=== PATIENT | male | born 1945 | race Caucasian/White ===

== ENCOUNTER 2023-08-10 15:05 | Outpatient (AMB) | payer MEDICARE, OTHER, SELFPAY ==
[2023-08-10 15:07] VITALS: BP 126/60; PULSE 74; O2SAT 98; BMI 34.3
--- NOTE | 2023-08-10 15:07 | HO.NEPHOV_ITS ---
HPI HPI Comments History of Present Illness Details 77-year-old man with a longstanding hist ory of hypertension who was recently found to have a serum creatinine of 2.1 and hence this referral. 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 PFSH Family History (Updated 08/10/23 @ 15:13 by Fadumo Dominguez) Mother Cancer Father Heart failure Social History (Updated 08/10/23 @ 15:13 by Fadumo Dominguez) Alcohol intake: current Comment: Seldom Patient Tobacco Use Status: Never used Tobacco Use of substances other than those prescribed or required for medical reasons: No Vital Signs 08/10/23 15:07 Height 5 ft 8.5 in Weight 229 lb BMI 34.3 BP 126/60 Blood Pressure Location Lt brachial Position Sitting Pulse 74 Pulse Source Pulse Oximeter Pulse Oximetry (%) 98 Oxygen Delivery Method Room Air Physical Exam Vital Signs: Last Vital Signs Pulse 74 08/10/23 15:07 BP 126/60 08/10/23 15:07 Pulse Ox 98 08/10/23 15:07 Oxygen Delivery Method Room Air 08/10/23 15:07 BMI result Body Mass Index 34.3 Const General: comfortable Nutritional Appearance: well nourished Orientation/consciousness: patient oriented x3 HEENT Head: No normal to inspection Mouth: moist mucous membranes Neck Neck: Yes supple and Yes no JVD Resp Auscultation: clear to auscultation bilaterally, no rales and rub present Cardio Jugular venous distension: no JVD Palpation: no palpable S3 and no palpable S4 Heart sounds: no rubs GI Palpation (GI): Soft to palpation and nontender Percussion: No Fluid wave present General: Yes no CVA tenderness Back/Spine/Pelvis Back: no CVA tenderness Skin General skin exam: no rashes or lesions noted Neuro General: patient oriented x3 Extrem General: Yes no pedal edema and No clubbing Assessment & Plan Assessment & Plan (1) CKD (chronic kidney disease): Code(s): N18.9 - Chronic kidney disease, unspecified (2) HTN (hypertension): Code(s): I10 - Essential (primary) hypertension Plan . 77-year-old man with a history of longstanding hypertension obesity with the elevated serum creatinine. Differential diagnosis include hypertensive nephrosclerosis. Other causes need to be ruled out. Workup as outlined below including urine for protein creatinine ratio and renal ultrasonogram. Encouraged him to lose some weight. Maintain blood pressure less than 130/80. Stay on low-sodium diet. Discussed weight loss. For now I have not made any changes in his medications. He will return to office once the baseline workup is completed and I will keep you updated. Orders: Orders UA and rflx microscopic Today N18.9 - Chronic kidney disease, unspecified Comprehensive Met. Panel Today N18.9 - Chronic kidney disease, unspecified Complete Blood Count Auto Diff Today N18.30 - Chronic kidney disease, stage 3 unspecified, N18.9 - Chronic kidney disease, unspecified Total Protein Urine Random Today N18.9 - Chronic kidney disease, unspecified Parathyroid Hormone Intact Today N18.9 - Chronic kidney disease, unspecified Creatinine Urine Today N05.9 - Unspecified nephritic syndrome with unspecified morphologic changes, N18.9 - Chronic kidney disease, unspecified US renal BI Today N18.9 - Chronic kidney disease, unspecified Coding Level of Care Code New Pt Level 5 (19850) Diagnoses CKD (chronic kidney disease) N18.9 HTN (hypertension) I10 Results Reviewed Results Reviewed: July 2023 Creatinine 2.1. Serum lytes normal. Nephrology Results: No Data to Display
== END 2023-08-10 15:36 | disposition home or self-care (01) ==
PROVIDERS: PCP Internal Medicine; Referring Provider Internal Medicine; Visit Provider Internal Medicine Hypertension Specialist
DX: I12.9 Hypertensive chronic kidney disease with stage 1 through stage 4 chronic kidney disease, or unspecified chronic kidney disease (principal); N18.9 Chronic kidney disease, unspecified
CPT/HCPCS: 99204

== ENCOUNTER → 2023-08-10 15:05 | Outpatient (BNVA) | payer MEDICARE, SELFPAY | PROVIDERS: PCP Internal Medicine; Referring Provider Internal Medicine; Visit Provider Internal Medicine Hypertension Specialist | DX: I12.9 Hypertensive chronic kidney disease with stage 1 through stage 4 chronic kidney disease, or unspecified chronic kidney disease (principal); N18.9 Chronic kidney disease, unspecified | CPT/HCPCS: 99202 ==

== ENCOUNTER 2023-09-21 13:32 | Outpatient (AMB) | payer MEDICARE, OTHER, SELFPAY ==
[2023-09-21 13:37] VITALS: BP 120/68; PULSE 75; O2SAT 98; BMI 33.9
--- NOTE | 2023-09-21 13:37 | HO.NEPHOV_ITS ---
HPI HPI Comments History of Present Illness Details 77-year-old man with a longstanding hist ory of hypertension who was recently found to have a serum creatinine of 2.1 and hence this referral. 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 09/21/23 Doing well Wakes up few times at night to urinate h/o Snoring PFSH Family History Mother Cancer Father Heart failure Social History Alcohol intake: current Comment: Seldom Patient Tobacco Use Status: Never used Tobacco Vital Signs 09/21/23 13:37 Height 5 ft 8.5 in Weight 226 lb BMI 33.9 BP 120/68 Blood Pressure Location Lt brachial Position Sitting Pulse 75 Pulse Source Pulse Oximeter Pulse Oximetry (%) 98 Oxygen Delivery Method Room Air Physical Exam Vital Signs: Last Vital Signs Pulse 75 09/21/23 13:37 BP 120/68 09/21/23 13:37 Pulse Ox 98 09/21/23 13:37 Oxygen Delivery Method Room Air 09/21/23 13:37 BMI result Body Mass Index 33.9 Const General: comfortable Nutritional Appearance: well nourished Orientation/consciousness: patient oriented x3 HEENT Head: No normal to inspection Mouth: moist mucous membranes Neck Neck: Yes supple and Yes no JVD Resp Auscultation: clear to auscultation bilaterally, no rales and rub present Cardio Jugular venous distension: no JVD Palpation: no palpable S3 and no palpable S4 Heart sounds: no rubs GI Palpation (GI): Soft to palpation and nontender Percussion: No Fluid wave present General: Yes no CVA tenderness Back/Spine/Pelvis Back: no CVA tenderness Skin General skin exam: no rashes or lesions noted Neuro General: patient oriented x3 Extrem General: Yes no pedal edema and No clubbing Assessment & Plan Assessment & Plan (1) CKD (chronic kidney disease): Code(s): N18.9 - Chronic kidney disease, unspecified (2) HTN (hypertension): Code(s): I10 - Essential (primary) hypertension Plan . 77-year-old man with a history of longstanding hypertension obesity with the elevated serum creatinine. Differential diagnosis include hypertensive nephrosclerosis. UA has no RBCS URien Pro: Cr is 304 with no protein by dipstick - ? paraproteins Ordered SPEP Track down renal ultrasonogram. Encouraged him to lose some weight. Maintain blood pressure less than 130/80. Increase PO fludi intake Stay on low-sodium diet. Probably has sleep apnea Will benefit from sleep evaluation Orders: Orders Protein Electrophoresis, Serum 2 Months N18.9 - Chronic kidney disease, unspecified Creatinine Urine 2 Months N05.9 - Unspecified nephritic syndrome with unspecified morphologic changes, N18.9 - Chronic kidney disease, unspecified Total Protein Urine Random 2 Months N18.9 - Chronic kidney disease, unspecified UA and rflx microscopic 2 Months N18.9 - Chronic kidney disease, unspecified Basic Metabolic Panel 2 Months N18.9 - Chronic kidney disease, unspecified Coding Level of Care Code Est Pt Level 4 (90467) Diagnoses CKD (chronic kidney disease) N18.9 HTN (hypertension) I10 Results Reviewed Results Reviewed: July 2023 Creatinine 2.1. Serum lytes normal. Repeat Cr on 09/05/23: 1.24 Urine Pro: cr 304 Nephrology Results: No Data to Display
== END 2023-09-21 14:13 | disposition home or self-care (01) ==
PROVIDERS: PCP Internal Medicine; Visit Provider Internal Medicine Hypertension Specialist
DX: I12.9 Hypertensive chronic kidney disease with stage 1 through stage 4 chronic kidney disease, or unspecified chronic kidney disease (principal); N18.9 Chronic kidney disease, unspecified
CPT/HCPCS: 99214

== ENCOUNTER → 2023-09-21 13:32 | Outpatient (BNVA) | payer MEDICARE, OTHER, SELFPAY | PROVIDERS: PCP Internal Medicine; Visit Provider Internal Medicine Hypertension Specialist | DX: I12.9 Hypertensive chronic kidney disease with stage 1 through stage 4 chronic kidney disease, or unspecified chronic kidney disease (principal); N18.9 Chronic kidney disease, unspecified | CPT/HCPCS: 99212 ==

== ENCOUNTER 2023-12-14 12:09 | Outpatient (REF) | payer MEDICARE, OTHER, SELFPAY ==
[2023-12-14 17:47] LABS: Appearance Urine Clear; Color Urine Yellow; Glucose Urine UA Negative (Negative); Leukocyte Esterase Urine Negative (Negative); Nitrite Urine Negative (Negative); Specific Gravity - Urine 1.015 (1.005-1.025); Urine Blood Negative (Negative); Urine Ketones Negative (Negative); Urine Protein Negative (Neg-Trace)
[2023-12-14 18:14] LABS: Creatinine Urine 85.89 mg/dL; Total Protein Urine Random < 7 mg/dL (<12)
[2023-12-14 18:17] LABS: Anion Gap 13 (12-20); Blood Urea Nitrogen 21 mg/dL (9-16); Calcium 9.1 mg/dL (8.4-10.2); Carbon Dioxide 28 mmol/L (22-29); Chloride 101 mmol/L (96-108); Estimated Glomerular Filt Rate 47; Glucose Random 81 mg/dL (60-115); Potassium 4.2 mmol/L (3.3-5.1); Sodium 138 mmol/L (135-145)
[2023-12-20 17:48] LABS: Prot Elec - Albumin 3.6 g/dL (3.8-4.8); Prot Elec - Alpha1 0.2 g/dL (0.2-0.3); Prot Elec - Alpha2 0.6 g/dL (0.5-0.9); Prot Elec - Beta 1 0.4 g/dL (0.4-0.6); Prot Elec - Beta 2 0.4 g/dL (0.2-0.5); Prot Elec - Gamma 0.7 g/dL (0.8-1.7); Prot Elec - Total Protein 5.9 g/dL (6.1-8.1)
== END 2023-12-14 12:10 | disposition home or self-care (01) ==
LOC: HO.HKASLDS 12:09
PROVIDERS: Visit Provider Internal Medicine Hypertension Specialist
DX: N18.9 Chronic kidney disease, unspecified (principal); N05.9 Unspecified nephritic syndrome with unspecified morphologic changes
CPT/HCPCS: 36415; 80048; 81003; 82570; 84156; 84165; 99212

== ENCOUNTER 2023-12-14 13:40 | Outpatient (AMB) | payer MEDICARE, OTHER, SELFPAY ==
[2023-12-14 13:39] VITALS: BP 134/64; PULSE 78; O2SAT 96; BMI 34.3
--- NOTE | 2023-12-14 13:39 | HO.NEPHOV ---
Vital Signs 12/14/23 13:39 Height 5 ft 8.5 in Weight 229 lb BMI 34.3 BP 134/64 Blood Pressure Location Lt brachial Position Sitting Pulse 78 Pulse Source Pulse Oximeter Pulse Oximetry (%) 96 Oxygen Delivery Method Room Air Intake Visit Reasons: CKD/ 3 MO FU/ Conf Motorsports Technician Required: No Accompanied by: Self / Same As Patient Allergies lisinopril Allergy (Mild, Verified 12/14/23 13:41) Itching statin Allergy (Mild, Uncoded 08/10/23 15:11) Unknown Medication List - Last Reconciled 12/14/23 by Kory Burrell MD coenzyme Q10 (Co Q-10) 300 mg PO DAILY losartan-hydrochlorothiazide 50-12.5 mg 1 tab PO DAILY magnesium 500 mg PO DAILY simvastatin 40 mg PO DAILY HPI Comments Details: 77-year-old man with a longstanding history of hypertension who was recently found to have a serum creatinine of 2.1 and hence this referral. 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 09/21/23;Doing well;Wakes up few times at night to urinate; h/o Snoring PFSH Family History Mother Cancer Father Heart failure Social History Alcohol intake: current Comment: Seldom Patient Tobacco Use Status: Never used Tobacco Physical Exam Vital Signs: Last Vital Signs Pulse 78 12/14/23 13:39 BP 134/64 12/14/23 13:39 Pulse Ox 96 12/14/23 13:39 Oxygen Delivery Method Room Air 12/14/23 13:39 BMI result Body Mass Index 34.3 Const General: comfortable; No acute distress Orientation/consciousness: patient oriented x3 Eyes General: appearance normal, both eyes and all related structures Visual Crouch: normal visual crouch by confrontation Neck Neck: Yes supple and Yes no JVD Resp Effort & Inspection: normal respiratory effort and respiratory effort not decreased Auscultation: rhonchi Cardio Palpation: no palpable S3 and no palpable S4 Heart sounds: no rubs GI Inspection: Yes normal to inspection Palpation (GI): Soft to palpation Percussion: Yes normal to percussion Auscultation: normal bowel sounds General: Yes no CVA tenderness Back/Spine/Pelvis Back: no CVA tenderness Skin General skin exam: no petechiae and no purpura Neuro General: patient oriented x3 and no focal motor deficits Extrem General: No clubbing and No edema Results Reviewed Nephrology Results: Sodium 138 mmol/L (135-145) 12/14/23 Potassium 4.2 mmol/L (3.3-5.1) 12/14/23 Chloride 101 mmol/L (96-108) 12/14/23 Carbon Dioxide 28 mmol/L (22-29) 12/14/23 BUN 21 mg/dL (9-16) H 12/14/23 Creatinine 1.44 mg/dL (0.5-1.4) H 12/14/23 Calcium 9.1 mg/dL (8.4-10.2) 12/14/23 Urine Protein Negative mg/dL (Neg-Trace) 12/14/23 Urine Creatinine 85.89 mg/dL 12/14/23 Assessment & Plan Assessment & Plan (1) CKD (chronic kidney disease): Code(s): N18.9 - Chronic kidney disease, unspecified Category: Medical (2) HTN (hypertension): Code(s): I10 - Essential (primary) hypertension Category: Medical Plan . 77-year-old man with a history of longstanding hypertension obesity with the elevated serum creatinine. Differential diagnosis include hypertensive nephrosclerosis. UA has no RBCS URien Pro: Cr is 304 with no protein by dipstick - ? paraproteins Ordered SPEP Track down renal ultrasonogram. Encouraged him to lose some weight. Maintain blood pressure less than 130/80. Increase PO fludi intake Stay on low-sodium diet. Probably has sleep apnea Will benefit from sleep evaluation Coding Level of Care Code Est Pt Level 4 (37469) Diagnoses CKD (chronic kidney disease) N18.9 HTN (hypertension) I10
== END 2023-12-14 13:59 | disposition home or self-care (01) ==
PROVIDERS: PCP Internal Medicine; Visit Provider Internal Medicine Hypertension Specialist
DX: I12.9 Hypertensive chronic kidney disease with stage 1 through stage 4 chronic kidney disease, or unspecified chronic kidney disease (principal); N18.9 Chronic kidney disease, unspecified
CPT/HCPCS: 99214

== ENCOUNTER 2024-04-18 14:43 | Outpatient (AMB) | payer MEDICARE, OTHER, SELFPAY ==
[2024-04-18 14:44] VITALS: BP 138/72; PULSE 75; O2SAT 97; BMI 34.5
--- NOTE | 2024-04-18 14:44 | HO.NEPHOV_ITS ---
Vital Signs 04/18/24 14:44 Height 5 ft 8.5 in Weight 230 lb BMI 34.5 BP 138/72 Blood Pressure Location Rt brachial Position Sitting Pulse 75 Pulse Source Pulse Oximeter Pulse Oximetry (%) 97 Oxygen Delivery Method Room Air Intake Visit Reasons: 4 mon follow up/ Conf Pin Game Machine Inspector Required: No Accompanied by: Self / Same As Patient Allergies lisinopril Allergy (Mild, Verified 04/18/24 14:46) Itching statin Allergy (Mild, Uncoded 08/10/23 15:11) Unknown Medication List - Last Reconciled 04/18/24 by Kory Burrell MD coenzyme Q10 (Co Q-10) 300 mg PO DAILY cyanocobalamin (vitamin B-12) 1,000 mcg PO DAILY losartan-hydrochlorothiazide 50-12.5 mg 1 tab PO DAILY magnesium 500 mg PO DAILY melatonin 10 mg PO BEDTIME PRN simvastatin 40 mg PO DAILY HPI Comments Details: 77-year-old man with a longstanding history of hypertension who was recently found to have a serum creatinine of 2.1 and hence this referral. 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 09/21/23;Doing well;Wakes up few times at night to urinate; h/o Snoring 04/18/24 No new issues PFSH Family History Mother Cancer Father Heart failure Social History Alcohol intake: current Comment: Seldom Patient Tobacco Use Status: Never used Tobacco Physical Exam Vital Signs: Last Vital Signs Pulse 75 04/18/24 14:44 BP 138/72 04/18/24 14:44 Pulse Ox 97 04/18/24 14:44 Oxygen Delivery Method Room Air 04/18/24 14:44 BMI result Body Mass Index 34.5 Const General: comfortable; No acute distress Orientation/consciousness: patient oriented x3 Eyes General: appearance normal, both eyes and all related structures Visual Crouch: normal visual crouch by confrontation Neck Neck: Yes supple and Yes no JVD Resp Effort & Inspection: normal respiratory effort and respiratory effort not decreased Auscultation: rhonchi Cardio Palpation: no palpable S3 and no palpable S4 Heart sounds: no rubs GI Inspection: Yes normal to inspection Palpation (GI): Soft to palpation Percussion: Yes normal to percussion Auscultation: normal bowel sounds General: Yes no CVA tenderness Back/Spine/Pelvis Back: no CVA tenderness Skin General skin exam: no petechiae and no purpura Neuro General: patient oriented x3 and no focal motor deficits Extrem General: No clubbing and No edema Results Reviewed Nephrology Results: Sodium 138 mmol/L (135-145) 12/14/23 Potassium 4.2 mmol/L (3.3-5.1) 12/14/23 Chloride 101 mmol/L (96-108) 12/14/23 Carbon Dioxide 28 mmol/L (22-29) 12/14/23 BUN 21 mg/dL (9-16) H 12/14/23 Creatinine 1.44 mg/dL (0.5-1.4) H 12/14/23 Calcium 9.1 mg/dL (8.4-10.2) 12/14/23 Urine Protein Negative mg/dL (Neg-Trace) 12/14/23 Urine Creatinine 85.89 mg/dL 12/14/23 Assessment & Plan Assessment & Plan (1) CKD (chronic kidney disease): Code(s): N18.9 - Chronic kidney disease, unspecified Category: Medical (2) HTN (hypertension): Code(s): I10 - Essential (primary) hypertension Category: Medical Plan . 77-year-old man with a history of longstanding hypertension obesity with the elevated serum creatinine. Differential diagnosis include hypertensive nephrosclerosis. UA has no RBCS URien Pro: Cr is 304 with no protein by dipstick - ? paraproteins Ordered SPEP, Renal cyst- hemorrahgic /simple. NO follow up recommended Encouraged him to lose some weight. Maintain blood pressure less than 130/80. Increase PO fluid intake Stay on low-sodium diet. Probably has sleep apnea Will benefit from sleep evaluation Orders: Orders Basic Metabolic Panel 4 Months I10 - Essential (primary) hypertension, N18.9 - Chronic kidney disease, unspecified Complete Blood Count no Diff 4 Months I10 - Essential (primary) hypertension, N18.9 - Chronic kidney disease, unspecified UA and rflx microscopic 4 Months I10 - Essential (primary) hypertension, N18.9 - Chronic kidney disease, unspecified Total Protein Urine Random 4 Months I10 - Essential (primary) hypertension, N18.9 - Chronic kidney disease, unspecified Creatinine Urine 4 Months I10 - Essential (primary) hypertension, N18.9 - Chronic kidney disease, unspecified Coding Level of Care Code Est Pt Level 4 (41456) Diagnoses CKD (chronic kidney disease) N18.9 HTN (hypertension) I10
== END 2024-04-18 14:58 | disposition home or self-care (01) ==
PROVIDERS: PCP Internal Medicine; Visit Provider Internal Medicine Hypertension Specialist
DX: I12.9 Hypertensive chronic kidney disease with stage 1 through stage 4 chronic kidney disease, or unspecified chronic kidney disease (principal); N18.9 Chronic kidney disease, unspecified
CPT/HCPCS: 99214

== ENCOUNTER → 2024-04-18 14:43 | Outpatient (BNVA) | payer MEDICARE, OTHER, SELFPAY | PROVIDERS: PCP Internal Medicine; Visit Provider Internal Medicine Hypertension Specialist | DX: I12.9 Hypertensive chronic kidney disease with stage 1 through stage 4 chronic kidney disease, or unspecified chronic kidney disease (principal); N18.9 Chronic kidney disease, unspecified | CPT/HCPCS: 99212 ==

== ENCOUNTER 2024-08-29 15:44 | Outpatient (AMB) | payer OTHER, MEDICARE, SELFPAY ==
[2024-08-29 15:43] VITALS: BP 118/64; PULSE 79; O2SAT 96; BMI 34.3
--- NOTE | 2024-08-29 15:43 | HO.NEPHOV ---
Vital Signs 08/29/24 15:43 Height 5 ft 8.5 in Weight 229 lb BMI 34.3 BP 118/64 Blood Pressure Location Lt brachial Position Sitting Pulse 79 Pulse Source Pulse Oximeter Pulse Oximetry (%) 96 Oxygen Delivery Method Room Air Intake Visit Reasons: 4 Month Follow Up CKD/ Conf Air Shovel Operator Required: No Accompanied by: Self / Same As Patient Allergies lisinopril Allergy (Mild, Verified 08/29/24 15:45) Itching statin Allergy (Mild, Uncoded 08/10/23 15:11) Unknown Medication List - Last Reconciled 08/29/24 by Kory Burrell MD aspirin 81 mg PO DAILY buspirone 15 mg PO DAILY cholecalciferol (vitamin D3) 25 mcg PO DAILY coenzyme Q10 (Co Q-10) 200 mg PO DAILY losartan-hydrochlorothiazide 50-12.5 mg 1 tab PO DAILY magnesium 500 mg PO DAILY melatonin 10 mg PO BEDTIME PRN simvastatin 40 mg PO DAILY HPI Comments Details: 77-year-old man with a longstanding history of hypertension who was recently found to have a serum creatinine of 2.1 and hence this referral. 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 09/21/23;Doing well;Wakes up few times at night to urinate; h/o Snoring 04/18/24 No new issues 08/29/24 : c/o increased urine frequency PFSH Family History Mother Cancer Father Heart failure Social History Alcohol intake: current Comment: Seldom Patient Tobacco Use Status: Never used Tobacco Physical Exam Vital Signs: Last Vital Signs Pulse 79 08/29/24 15:43 BP 118/64 08/29/24 15:43 Pulse Ox 96 08/29/24 15:43 Oxygen Delivery Method Room Air 08/29/24 15:43 BMI result Body Mass Index 34.3 Const General: comfortable; No acute distress Orientation/consciousness: patient oriented x3 Eyes General: appearance normal, both eyes and all related structures Visual Crouch: normal visual crouch by confrontation Neck Neck: Yes supple and Yes no JVD Resp Effort & Inspection: normal respiratory effort and respiratory effort not decreased Cardio Palpation: no palpable S3 and no palpable S4 Heart sounds: no rubs GI Inspection: Yes normal to inspection Palpation (GI): Soft to palpation Percussion: Yes normal to percussion Auscultation: normal bowel sounds General: Yes no CVA tenderness Back/Spine/Pelvis Back: no CVA tenderness Skin General skin exam: no petechiae and no purpura Neuro General: patient oriented x3 and no focal motor deficits Extrem General: No clubbing and No edema Results Reviewed Nephrology Results: Sodium 138 mmol/L (135-145) 12/14/23 Potassium 4.2 mmol/L (3.3-5.1) 12/14/23 Chloride 101 mmol/L (96-108) 12/14/23 Carbon Dioxide 28 mmol/L (22-29) 12/14/23 BUN 21 mg/dL (9-16) H 12/14/23 Creatinine 1.44 mg/dL (0.5-1.4) H 12/14/23 Calcium 9.1 mg/dL (8.4-10.2) 12/14/23 Urine Protein Negative mg/dL (Neg-Trace) 12/14/23 Urine Creatinine 85.89 mg/dL 12/14/23 Assessment & Plan Assessment & Plan (1) CKD (chronic kidney disease): Code(s): N18.9 - Chronic kidney disease, unspecified Category: Medical (2) HTN (hypertension): Code(s): I10 - Essential (primary) hypertension Category: Medical Plan . 78-year-old man with a history of longstanding hypertension obesity with the elevated serum creatinine. Differential diagnosis include hypertensive nephrosclerosis. UA has no RBCS Urine Pro: Cr is 304 with no protein by dipstick - ? paraproteins Ordered SPEP- but not done; Reordered- results pending Renal cyst- hemorrhagic /simple. NO follow up recommended Encouraged him to lose some weight. Maintain blood pressure less than 130/80. Increase PO fluid intake Stay on low-sodium diet. Probably has sleep apnea Will benefit from sleep evaluation r/o BPH Defer to PCP Orders: Orders Basic Metabolic Panel 5 Months N18.9 - Chronic kidney disease, unspecified UA and rflx microscopic 5 Months N18.9 - Chronic kidney disease, unspecified Protein Electrophoresis, Serum 5 Months N18.9 - Chronic kidney disease, unspecified Total Protein Urine Random 5 Months N18.9 - Chronic kidney disease, unspecified Creatinine Urine 5 Months N18.9 - Chronic kidney disease, unspecified Coding Level of Care Code Est Pt Level 4 (23275) Diagnoses CKD (chronic kidney disease) N18.9 HTN (hypertension) I10
== END 2024-08-29 16:04 | disposition home or self-care (01) ==
LOC: HO.HKAE 15:44
PROVIDERS: PCP Internal Medicine; Visit Provider Internal Medicine Hypertension Specialist
DX: I12.9 Hypertensive chronic kidney disease with stage 1 through stage 4 chronic kidney disease, or unspecified chronic kidney disease (principal); N18.9 Chronic kidney disease, unspecified
CPT/HCPCS: 99214

== ENCOUNTER → 2024-08-29 15:44 | Outpatient (BNVA) | payer MEDICARE, OTHER, SELFPAY | PROVIDERS: PCP Internal Medicine; Visit Provider Internal Medicine Hypertension Specialist | DX: N18.9 Chronic kidney disease, unspecified (principal); I10 Essential (primary) hypertension ==

== ENCOUNTER 2025-02-27 14:31 | Outpatient (AMB) | payer MEDICARE, OTHER, SELFPAY ==
--- NOTE | 2025-02-27 14:32 | HO.NEPHOV_ITS ---
Vital Signs 02/27/25 14:33 Height 5 ft 8.5 in Weight 226 lb BMI 33.9 BP 138/78 Blood Pressure Location Rt brachial Position Sitting Pulse 73 Pulse Source Pulse Oximeter Pulse Oximetry (%) 98 Oxygen Delivery Method Room Air Intake Visit Reasons: 6 month f/u-Conf Habilitation Training Specialist Required: No Accompanied by: Self / Same As Patient Allergies lisinopril Allergy (Mild, Verified 02/27/25 14:34) Itching statin Allergy (Mild, Uncoded 08/10/23 15:11) Unknown Medication List - Last Reconciled 02/27/25 by Kory Burrell MD aspirin 81 mg PO DAILY buspirone 15 mg PO DAILY cholecalciferol (vitamin D3) 25 mcg PO DAILY coenzyme Q10 (Co Q-10) 200 mg PO DAILY finasteride 5 mg PO DAILY linaclotide (Linzess) 145 mcg PO DAILY losartan-hydrochlorothiazide 50-12.5 mg 1 tab PO DAILY magnesium 500 mg PO DAILY melatonin 10 mg PO BEDTIME PRN simvastatin 40 mg PO DAILY tamsulosin 0.4 mg PO DAILY HPI Comments Details: 77-year-old man with a longstanding history of hypertension who was recently found to have a serum creatinine of 2.1 and hence this referral. 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 09/21/23;Doing well;Wakes up few times at night to urinate; h/o Snoring 04/18/24 No new issues 08/29/24 : c/o increased urine frequency 02/27/2025 - The patient is an 79-year-old male presenting with chronic kidney disease management. - Hypertension: Blood pressure 138/78 mmHg, managed with medication. - Benign Prostatic Hyperplasia: Nocturia present, finasteride started with minimal improvement. - Chronic Kidney Disease: Stable creatinine at 1.27 mg/dL, GFR 58%. - Constipation: Linzess prescribed for management. PFSH Family History Mother Cancer Father Heart failure Social History Alcohol intake: current Comment: Seldom Patient Tobacco Use Status: Never used Tobacco Physical Exam Vital Signs: Last Vital Signs Pulse 73 02/27/25 14:33 BP 138/78 02/27/25 14:33 Pulse Ox 98 02/27/25 14:33 Oxygen Delivery Method Room Air 02/27/25 14:33 BMI result Body Mass Index 33.9 Comfortable Neck supple no JVD. Lungs entry equal no rales. Heart S1-S2 heard no gallop or rub. Abdomen soft nontender. Neuro alert awake oriented. No asterixis. Extremities no edema. Const General: comfortable; No acute distress Orientation/consciousness: patient oriented x3 Eyes General: appearance normal, both eyes and all related structures Visual Crouch: normal visual crouch by confrontation Neck Neck: Yes supple and Yes no JVD Resp Effort & Inspection: normal respiratory effort and respiratory effort not decreased Cardio Palpation: no palpable S3 and no palpable S4 Heart sounds: no rubs GI Inspection: Yes normal to inspection Palpation (GI): Soft to palpation Percussion: Yes normal to percussion Auscultation: normal bowel sounds General: Yes no CVA tenderness Back/Spine/Pelvis Back: no CVA tenderness Skin General skin exam: no petechiae and no purpura Neuro General: patient oriented x3 and no focal motor deficits Extrem General: No clubbing and No edema Results Reviewed Results Reviewed: August 2024 Recent serum creatinine 1.27 Nephrology Results: Sodium, (135-145) 138 mmol/L 12/14/23 Potassium, (3.3-5.1) 4.2 mmol/L 12/14/23 Chloride, (96-108) 101 mmol/L 12/14/23 Carbon Dioxide, (22-29) 28 mmol/L 12/14/23 BUN, (9-16) 21 mg/dL H 12/14/23 Creatinine, (0.5-1.4) 1.44 mg/dL H 12/14/23 Calcium, (8.4-10.2) 9.1 mg/dL 12/14/23 Urine Protein, (Neg-Trace) Negative mg/dL 12/14/23 Urine Creatinine 85.89 mg/dL 12/14/23 Assessment & Plan Assessment & Plan (1) CKD (chronic kidney disease): Code(s): N18.9 - Chronic kidney disease, unspecified Category: Medical (2) HTN (hypertension): Code(s): I10 - Essential (primary) hypertension Category: Medical Plan . [id number] man with a history of longstanding hypertension obesity with the elevated serum creatinine. Differential diagnosis include hypertensive nephrosclerosis. UA has no RBCS Urine Pro: Cr is is normal. No significant proteinuria Renal cyst- hemorrhagic /simple. NO follow up recommended Encouraged him to lose some weight. Maintain blood pressure less than 130/80. Increase PO fluid intake Stay on low-sodium diet. Probably has sleep apnea Will benefit from sleep evaluation Renal function stable with a serum creatinine of 1.27. No significant proteinuria at this time. We will continue to monitor renal function periodically Continue to avoid nephrotoxic agents including NSAIDs Orders: Orders Basic Metabolic Panel 6 Months I10 - Essential (primary) hypertension, N18.9 - Chronic kidney disease, unspecified Coding Level of Care Code Est Pt Level 4 (26401) Diagnoses CKD (chronic kidney disease) N18.9 HTN (hypertension) I10
[2025-02-27 14:33] VITALS: BP 138/78; PULSE 73; O2SAT 98; BMI 33.9
--- OUTSIDE RECORDS SUMMARY | 2025-02-27 17:10 | XMS_ITS | Clinical Summary ---
Author Organization [facility] Address [address] [place] [address] Care Team Providers Care Plating Tank Operator Apprentice Name Role Phone Pcp, No Primary Care Provider Arnoldo Red MD Unavailable [phone] Allergies Active Allergy Reactions Criticality Noted Date Comments Lisinopril Itching Low 07/04/2024 Lisinopril Itching Low 02/16/2025 Statins Other (See Comments) Low 04/29/2020 Pain in arms certain statin pt is not sure of the name Medications coenzyme Q10 (CoQ10) 100 MG capsule Take 100 mg by mouth daily. Active losartan-hydrochlorothi azide (HYZAAR) 50-12.5 MG per tablet Take 1 tablet by mouth daily. Active simvastatin (ZOCOR) 20 MG tablet Take 40 mg by mouth nightly. Active Polyethylene Glycol 3350 (MIRALAX PO) Take by mouth. As needed Active Psyllium (METAMUCIL PO) Take by mouth. As needed Active dextromethorphan-guaiFE Nesin (MUCINEX DM) 30-600 MG per 12 hr tablet Take 1 tablet by mouth twice daily (every 12 hours). Active aspirin 81 MG chewable tablet Chew 81 mg daily. Active simvastatin (ZOCOR) 40 MG tablet Take 40 mg by mouth nightly. Active losartan 50 MG TABS 50 mg, hydroCHLOROthiazide 12.5 MG TABS 12.5 mg per dose Take 1 tablet by mouth daily. Active linaclotide (LINZESS) 145 MCG Cap capsule Take 145 mcg by mouth every morning before breakfast. Active coenzyme Q10 (CO Q 10) 100 MG capsule Take 200 mg by mouth daily. Active busPIRone (BUSPAR) 15 MG tablet Take 15 mg by mouth 2 (two) times a day. Active tamsulosin (FLOMAX) 0.4 MG capsule Take 0.4 mg by mouth daily. Active finasteride (PROSCAR) 5 MG tablet Take 5 mg by mouth daily. Active Active Problems Problem Noted Date Diagnosed Date Irritable bowel syndrome wit h both constipation and diarrhea 06/26/2024 Gastrointestinal hemorrhage with melena 06/26/19 25 History of colonic polyps 02/25/2020 Assessment & Plan (02/25/2020 10:23 AM EDT): Adenoma carcinoma sequence discussed High fiber diet Last colon:2016 3 polyps >1cm (1 TVA) Recall colonoscopy due:2019 - pt be scheduled this year Diverticulosis of colon 02/25/2020 Assessment & Plan (02/25/2020 10:23 AM EDT): High fiber diet Follow clinically for signs of infection History of colon cancer 02/25/2020 Assessment & Plan (02/25/2020 10:22 AM EDT): Pt with h/o colon ca in early 60s. S/p resection Last colon 2016 - 3 polyps, 1 TVA Due for recall colon High fiber diet Adenoma carcinoma sequence discussed The risks, benefits and alternatives to the procedure were carefully explained to the patient. The risks include but are not limited to perforation, bleeding, infection, respiratory compromise and . All questions were answered. Frequent bowel movements 02/25/2020 Assessment & Plan (02/25/2020 10:25 AM EDT): Controlled well with metamucil daily High fiber diet Call w worsening symptoms Encounters Date Type Department Care Team Description 02/16/2025 3:50 PM EDT Office Visit [facility] [address] [place] [address] Skyler Lewis MD [place], [place], [place] Anterior epistaxis (Primary Dx) 02/16/2025 Travel from Last 3 Months Social History Tobacco Use Types Packs/Day Years Used Date Smoking Tobacco: Never Smokeless Tobacco: Never Tobacco Cessation:Counseling Given: Not Answered Alcohol Use Standard Drinks/Week Comments Not Currently 0 (1 standard drink = 0.6 oz pur e alcohol) patient reported Sex and Gender Information Value Date Recorded Sex Assigned at Male 06/26/2024 2:00 PM EST Legal Sex Male 2:18 PM EDT Gender Identity Male 06/26/2024 2:00 PM EST Sexual Orientation Heterosexual (straight) 06/26 2:00 PM EST Last Filed Vital Signs Vital Sign Reading Time Taken Comments Blood Pressure 122/77 02/16/2025 4:02 PM EDT Pulse 66 02/16/2025 4:02 PM EDT Temperature 36.6 C (97.9 F) 02/16/2025 4:02 PM EDT Respiratory Rate 17 02/16/2025 4:02 PM EDT Oxygen Saturation 98% 02/16/2025 4:02 PM EDT Inhaled Oxygen Concentration - - Weight 105 kg (232 lb) 02/16/2025 4:02 PM EDT Height 172.7 cm (5' 8 ) 02/16/2025 4:02 PM EDT Body Mass Index 35.28 02/16/2025 4:02 PM EDT Plan of Treatment Health Maintenance Due Date Last Done Comments Advance Care Planning 1945 DTaP/Tdap/Td Vaccines (1 - Tdap) 11/06/1963 Pneumococcal Vaccines 50+ (1 of 1 - PCV) 1994 Zoster (Shingles) Vaccine (1 of 2) 1994 RSV Vaccine 60 years and older and Patients (1 - 1-dose 75+ series) 11/06/2019 Influenza Vaccine 01/04/2025 04/22/2023 COVID-19 Vaccine (3 - 2024-2 6 season) 2025 08/14/2020, 07/17/2020 Colonoscopy 07/04/2029 07/04/2024, 07/04/2024 (Previously Completed), 01/21/2023 Hepatitis B Vaccines Aged Out No long er eligible based on patient's age to complete this topic Insurance MEDICARE PART A & B Member Subscriber Plan / Payer (Ef fective 2009-Present) Name:Eleno Padilla Member ID:[id number] Relation to Subscriber:Self Name:Eleno Padilla Subscriber ID:[id number] Payer ID:[id number] Group ID:Not on file Type:Not on file Address: [address] SUPPLEMENT ONLY Member Subscriber Plan / Payer (Ef fective 2009-Present) Name:Eleno Pdailla Relation to Subscriber:Self Name:Eleno Padilla Payer ID:Not on file Group ID:Not on file Type:Not on file Address: [place] [id number] MEDICARE PART A & B Member Subscriber Plan / Payer (Ef fective 2009-) Name:Eleno Padilla Member ID:[id number] Relation to Subscriber:Self Name:Eleno Padilla Subscriber ID:[id number] Payer ID:[id number] Group ID:Not on file Type:Not on file Address: [address] SUPPLEMENT ONLY Member Subscriber Plan / Payer ( fective 2009-Present) Name:Eleno Padilla Relation to Subscriber:Self Name:Eleno Padilla Payer ID:Not on file Group ID:Not on file Type:Not on file Address: [place] [id number] MEDICARE PART A & B [facility] SUPPLEMENT ONLY MEDICARE PART A & B Member Subscriber Plan / Payer (Ef fective 2009-Present) Name:Eleno Padilla Member ID:[id number] Relation to Subscriber:Self Name:Eleno Padilla Subscriber ID:[id number] Payer ID:[id number] Group ID:Not on file Type:Not on file Address: [place] [id number] Care Teams Plating Tank Operator Apprentice Relationship Specialty Start Date End Date Pcp, No PCP - General 02/16/25 Arnoldo Geronimo MD Surgery, Plastic & Reconstructive 02/16/25
--- OUTSIDE RECORDS SUMMARY | 2025-02-27 17:10 | XMS_ITS | Clinical Summary ---
Author Organization [facility] Address [address] [place] [address] Care Team Providers Care Scorekeeper Name Role Phone Arnoldo Geronimo MD Primary Care Provider [phone] Surgical History Surgery Date Site/Laterality Comments COLON SURGERY PROCEDURE:COLON SURGERY TONSILLECTOMY PROCEDURE:TONSILLECTOMY COLONOSCOPY 09/23/2016 N/A PROCEDURE:COLONOSCOPY;COMMENT:Procedure: COLONOSCOPY; Surgeon: Joel Gurrola MD; Location: [facility]; Service: Gastroenterology; Laterality: N/A; COLONOSCOPY 05/13/2020 N/A PROCEDURE:COLONOSCOPY;COMMENT:Procedure: COLONOSCOPY; Surgeon: Joel Gurrola MD; Location: [facility]; Service: Gastroenterology; Laterality: N/A; COLONOSCOPY 04/14/2021 N/A PROCEDURE:COLONOSCOPY;COMMENT:Procedure: COLONOSCOPY; Surgeon: Joel Gurrola MD; Location: [facility]; Service: Gastroenterology; Laterality: N/A; COLONOSCOPY 01/21/2023 N/A PROCEDURE:COLONOSCOPY;COMMENT:Procedure: COLONOSCOPY; Surgeon: Joel Gurrola MD; Location: [facility]; Service: Gastroenterology; Laterality: N/A; Medical History Medical History Date Comments Hyperlipidemia DX:Hyperlipidemi a Hypertension DX:Hypertension Irritable bowel DX:Irritable bow el Cancer (CMS/HCC V24, CMS/HCC V28) DX:Cancer (HCC);COMMENT:colon Colon polyp DX:Colon polyp Social History Tobacco Use Types Packs/Day Years Used Date Smoking Tobacco: Never Smokeless Tobacco: Never Alcohol Use Standard Drinks/Week Comments Yes 0 (1 standard drink = 0.6 oz pur e alcohol) Sex and Gender Information Value Date Recorded Sex Assigned at Not on file Legal Sex Male 11:16 AM EST Gender Identity Not on file Sexual Orientation Not on file Obstetrics History Plan of Treatment Health Maintenance Due Date Last Done Comments DTaP,Tdap,and Td Vaccines (1 - Tdap) 11/06/1963 Pneumococcal Vaccine: 50+ Ye ars (1 of 1 - PCV) 1994 Zoster Vaccines (1 of 2) 1994 RSV Immunization Adult Patie nts (1 - 1-dose 75+ series) 11/06/2019 Falls Risk Assessment 05/04/2022 Social Influencers of Health Screening 05/04/2022 Cholesterol Screening (Lipid Panel) 03/22/2023 03/22/2018 Depression Screening 06/06/2024 COVID-19 Vaccine ( - 2023-2 5 season) 2025 Influenza Vaccine (#1) 2025 HIB Vaccines Aged Out No longer eligi ble based on patient's age to complete this topic HPV Vaccines Aged Out No longer eligi ble based on patient's age to complete this topic Hepatitis A Vaccines Aged Out No long er eligible based on patient's age to complete this topic Hepatitis B Vaccines Aged Out No long er eligible based on patient's age to complete this topic IPV Vaccines Aged Out No longer eligi ble based on patient's age to complete this topic MMR Vaccines Aged Out No longer eligi ble based on patient's age to complete this topic Meningococcal ACWY Vaccine Aged Out N o longer eligible based on patient's age to complete this topic Meningococcal B Vaccine Aged Out No l onger eligible based on patient's age to complete this topic RSV Immunization Patients Un deirdre 20 months Aged Out No longer eligible b ased on patient's age to complete this topic Varicella Vaccines Aged Out No longer eligible based on patient's age to complete this topic Care Teams Scorekeeper Relationship Specialty Start Date End Date Arnoldo Geronimo MD [address] [place] [address] PCP - General Internal Medicine 01/21/16
--- OUTSIDE RECORDS SUMMARY | 2025-02-27 17:10 | XMS_ITS | Clinical Summary ---
Author Organization [facility] Address [address] [place] [address] Care Team Providers Care Bookkeeping Teacher Name Role Phone Arnoldo Geronimo MD Primary Care Provider [phone] Allergies Active Allergy Reactions Criticality Noted Date Comments Lisinopril Itching 04/08/2021 Statins Other (See Comments) Low 04/29/2020 Pain in arms Other reaction(s): Other (See Comments) Pain in arms certain statin pt is not sure of the name Medications Medication Sig Dispensed Refills Start Date End Date Status simvastatin (ZOCOR) tablet 40 mg Take 1 tablet (40 mg total) by mouth every night at bedtime. 0 Active Coenzyme Q10 (COQ10) 100 MG CAPS Take 100 mg by mouth. 0 Active losartan-hydrochloroth iazide (HYZAAR) 50-12.5 MG per tablet Take 1 tablet by mouth daily. 0 Active cetirizine (ZyrTEC) 10 MG tablet Take 1 tablet (10 mg total) by mouth daily. 0 Active psyllium (METAMUCIL) 58.6 % packet Take 1 packet by mouth daily. 0 Active Active Problems No known active problems Social History Tobacco Use Types Packs/Day Years Used Date Smoking Tobacco: Never Smokeless Tobacco: Never Tobacco Cessation:Counseling Given: No Alcohol Use Standard Drinks/Week Comments Yes 0 (1 standard drink = 0.6 oz pur e alcohol) Very rarely Sex and Gender Information Value Date Recorded Sex Assigned at Male 08/18/2018 9:30 AM EDT Gender Identity Not on file Sexual Orientation Not on file Job Start Date Occupation Industry Not on file Not on file Not on file Last Filed Vital Signs Vital Sign Reading Time Taken Comments Blood Pressure 131/70 01/21/2023 10:01 AM EDT Pulse 68 01/21/2023 10:01 AM EDT Temperature 36.3 C (97.3 F) 01/21/2023 9:56 AM EDT Respiratory Rate 18 01/21/2023 10:01 AM EDT Oxygen Saturation 95% 01/21/2023 10:01 AM EDT Inhaled Oxygen Concentration - - Weight 104.3 kg (230 lb) 01/21/2023 8:46 AM EDT Height 174 cm (5' 8.5 ) 01/21/2023 8:46 AM EDT Body Mass Index 34.46 01/21/2023 8:46 AM EDT Plan of Treatment Health Maintenance Due Date Last Done Comments COVID-19 Vaccine (#1) 05/07/1946 Depression Screening 1956 BMI Counseling 1962 Preventative Health Evaluation 1962 DTap / Tdap / Td (1 - Tdap) 11/06/1963 Shingrix-Zoster Vaccine (1 of 2) 1994 Fall Risk Assessment 2009 Pneumococcal Vaccine (1 of 1 - PCV) 2009 RSV Adult > 60+ Yrs or Pregn ant (1 - 1-dose 75+ series) 11/06/2019 Influenza Vaccine (#1) 2025 Hepatitis B Vaccines Aged Out No long er eligible based on patient's age to complete this topic RSV Ped < 20 months Aged Out No longe r eligible based on patient's age to complete this topic Advance Directives For more information, please contact: [phone] Documents on File Type Date Recorded Patient Drapery Estimator Expl anation Advance Directive and Living Will 09/23/2016 1:25 PM Latest Code Status on File Code Status Date Activated Date Inactivated Comments Full Code 01/21/2023 9:37 AM 01/21/2023 5:25 PM This code status was ascertained in the following way: discussion with patient. Code Status History Code Status Date Activated Date Inactivated Comments Full Code 04/14/2021 9:49 AM 04/14/2021 4:37 PM This code status was ascertained in the following way: discussion with patient. Full Code 05/13/2020 9:02 AM 05/13/2020 4:33 PM This code status was ascertained in the following way: discussion with patient. Full Code 09/23/2016 9:45 AM 09/23/2016 4:50 PM This code status was ascertained in the following way: discussion with patient. Care Teams Bookkeeping Teacher Relationship Specialty Start Date End Date Arnoldo Geronimo MD [address] [place] [address] PCP - General Internal Medicine 01/21/16
--- OUTSIDE RECORDS SUMMARY | 2025-02-27 17:10 | XMS_ITS ---
Author Name [facility] Organization Unknown History of Medication Use Medication Directions Dispensed Refills Start Date End Date Status sodium chloride 0.9% (NS) infusion 75 mL/hr, Intravenous, Continuous, Starting on Tue07/04/24 at 0700, Pre-Procedure (GI) 5 active polyethylene glycol-electrolytes (MOVIPREP) 100 g Recon Soln solution Take as directed for Colonoscopy/GI Procedure. See administration instructions. 5 07/04/19 aborted sughuw-mdcxohttj-xhtoypb um sulfates (Suprep Bowel Prep Kit) 17.5-3.13-1.6 GM/177ML Solution solution Follow directions provided by physician's office. 1 01/14/20 active loratadine (CLARITIN) 10 MG tablet Take 10 mg by mouth daily. 01/14/20 aborted aspirin 81 MG chewable tablet Chew 81 mg daily. active busPIRone (BUSPAR) 15 MG tablet Take 15 mg by mouth 2 (two) times a day. active coenzyme Q10 (CO Q 10) 100 MG capsule Take 200 mg by mouth daily. active finasteride (PROSCAR) 5 MG tablet Take 5 mg by mouth daily. active linaclotide (LINZESS) 145 MCG Cap capsule Take 145 mcg by mouth every morning before breakfast. active losartan 50 MG TABS 50 mg, hydroCHLOROthiazide 12.5 MG TABS 12.5 mg per dose Take 1 tablet by mouth daily. active Polyethylene Glycol 3350 (MIRALAX PO) Take by mouth. As needed active simvastatin (ZOCOR) 20 MG tablet Take 40 mg by mouth nightly. active simvastatin (ZOCOR) 40 MG tablet Take 40 mg by mouth nightly. active tamsulosin (FLOMAX) 0.4 MG capsule Take 0.4 mg by mouth daily. active Allergies Allergen Reaction Severity Comment Documented Date Source Statu s LISINOPRIL ITCHING 07/04/2024 [facility] active STATINS OTHER (SEE COMMENTS) Pain in arms certain statin pt is not sure of the name 04/29/2020 [facility] active Problems Problem Status Onset Date Problem Type Date of Resolution Source Anterior epistaxis active EncounterDiagnosisAct [facility] Frequent bowel movements active 2020-02-25 ProblemAct [facility] History of colonic polyps active 2020-02-25 ProblemAct [facility] Irritable bowel syndrome with both constipation and diarrhea active 2024-06-26 ProblemAct [facility] Gastrointestinal hemorrhage with melena active 2024-06-26 ProblemAct [facility] History of colon cancer active 2020-02-25 ProblemAct [facility] Diverticulosis of colon active 2020-02-25 ProblemAct [facility] Encounters Encounter Type Encounter Reason Primary Diagnosis Location Date Ambulatory Other Other [facility] 02/16/2025 Ambulatory Family history of malignant neoplasm of digestive organs Family history of malignant neoplasm of digestive organs [facility] 07/04/2024 Ambulatory Follow-up Follow-up [facility] 06/26/2024 Ambulatory [facility] 03/16/2024 Ambulatory Cough, unspecified Cough, unspecified [facility] 03/07/2023 Ambulatory Personal history of other malignant neoplasm of large intestine Personal history of other malignant neoplasm of large intestine [facility] 01/21/2023 Ambulatory Personal history of colonic polyps Personal history of colonic polyps [facility] 01/13/2023 Ambulatory COVID-19 [facility] 04/17/2021 Ambulatory Diverticulosis o f large intestine without perforation or abscess without bleeding [facility] 03/06/2021 Care Team Organization Name Specialty Phone Email Start Date End Da te [facility] PCP [facility] 02/16/2025 [facility] 02/16/2025 [facility] NO PCP Primary Care 02/16/2025 [facility] 10/17/2024 [facility] 2024 [facility] 06/26/2023 [facility] 202209/03/2024 [facility] Dave Geronimo Primary Care 04/17/2021 [facility] DAVE GERONIMO Primary Care 03/06/2021 [facility] Primary Care
--- OUTSIDE RECORDS SUMMARY | 2025-02-27 17:10 | XMS_ITS | Encounter Summary ---
Author Organization [facility] Address [address] [place] [address] Care Team Providers Care Ceramic Design Engineer Name Role Phone Arnoldo Geronimo MD Primary Care Provider [phone] Pcp, No Primary Care Provider Unavailabl e Arnoldo Geronimo MD Unavailable [phone] Encounter Details Date Type Department Care Team (Late st Contact Info) Description 07/04/[address] [facility] [address] [facility] [address] [place] [address] Joel Grurola MD [address] [place] [address] Social History Tobacco Use Types Packs/Day Years Used Date Smoking Tobacco: Never Smokeless Tobacco: Never Alcohol Use Standard Drinks/Week Comments Not Currently 0 (1 standard drink = 0.6 oz pur e alcohol) patient reported Sex and Gender Information Value Date Recorded Sex Assigned at Male 06/26/2024 2:00 PM EST Legal Sex Male 2:18 PM EDT Gender Identity Male 06/26/2024 2:00 PM EST Sexual Orientation Heterosexual (straight) 06/26 2:00 PM EST documented as of this encounter Progress Notes * Radha Jara MA - 07/04/2024 7:26 AM EST Patient aware and notified of results via phone call on 07/12/24 @ 10:49 AM. 5 yr recall placed for 07/04/2029. documented in this encounter Plan of Treatment Not on file documented as of this encounter Procedures Procedure Name Priority Date/Time Associated Diagnosis Comments PATHOLOGY REPORT 07/04/2024 12:0 0 AM EST documented in this encounter Results * Pathology (07/04/2024 12:00 AM EST) us Joel Gurrola MD PATHOLOGY/CYTOLOGY ORDERABLE S Final Result documented in this encounter Visit Diagnoses Not on filedocumented in this encounter Care Teams Ceramic Design Engineer Relationship Specialty Start Date End Date Arnoldo Geronimo MD PCP - General Surgery, Plastic & Reconstructive 12/05/19 02/15/25 Pcp, No PCP - General 02/16/25 Arnoldo Geronimo MD Surgery, Plastic & Reconstructive 02/16/25 documented as of this encounter
== END 2025-02-27 14:46 | disposition home or self-care (01) ==
LOC: HO.HKAE 14:32
PROVIDERS: PCP Internal Medicine; Visit Provider Internal Medicine Hypertension Specialist
DX: I12.9 Hypertensive chronic kidney disease with stage 1 through stage 4 chronic kidney disease, or unspecified chronic kidney disease (principal); N18.9 Chronic kidney disease, unspecified
CPT/HCPCS: 99214

== ENCOUNTER → 2025-02-27 14:31 | Outpatient (BNVA) | payer MEDICARE, OTHER, SELFPAY | PROVIDERS: PCP Internal Medicine; Visit Provider Internal Medicine Hypertension Specialist | DX: N18.9 Chronic kidney disease, unspecified (principal); I12.9 Hypertensive chronic kidney disease with stage 1 through stage 4 chronic kidney disease, or unspecified chronic kidney disease; R35.1 Nocturia; Z79.82 Long term (current) use of aspirin | CPT/HCPCS: 99212 ==